=== PATIENT | male | born 1940 | race Caucasian/White ===

== ENCOUNTER 2016-09-11 07:55 | Emergency (ER) | payer MEDICARE ==
[~2016-09-11] VITALS: Ht 177.8 cm; Wt 73.0 kg
[2016-09-11 08:09] VITALS: BP 133/77; PULSE 71; RESP 16; TEMP 97.9; O2SAT 99
[2016-09-11] MEDS ORDERED: AMLO10TA2 PO (08:19)
[2016-09-11] MEDS ORDERED: ASPI1TAB69 PO (08:19)
--- NOTE | 2016-09-11 08:27 | PD ---
HPI Chief Complaint: Fall Time Seen by Provider: 08:10 Travel History International Travel<30 days: No Contact w/Intl Traveler<30days: No Traveled to known affect area: No History of Present Illness HPI This is a 75-year-old man who presents to the emergency department complaining of pain in the neck, pain in his back, pain in his hand from a fall. He states yesterday he was getting out of this before she walked into a sliding glass door sort of bounced off and fell backwards landing on his butt and on his hands. He did not hit his head on the ground. He states initially he was pretty sore especially in his neck and back and hands. He states today he feels significantly better. He still pain in his left hip, a little bit of stiffness in his neck. He otherwise looks well. History Past Medical History Narrative Medical BPH Hypertension Social History Tobacco Use: No Allergies-Medications (Allergen,Severity, Reaction): Coded Allergies: No Known Allergies (Unverified , 09/11/16) Reported Meds & Prescriptions Reported Meds & Active Scripts Active Reported Aspirin 81 Mg Tabdr 81 Mg PO DAILY Amlodipine (Amlodipine Besylate) 10 Mg Tab 10 Mg PO DAILY Review of Systems Except as stated in HPI: all other systems reviewed are Neg Physical Exam Narrative GENERAL: Well-appearing 75-year-old man, in no acute distress. SKIN: Focused skin assessment warm/dry. HEAD: Atraumatic. Normocephalic. EYES: Pupils equal and round. No scleral icterus. No injection or drainage. ENT: No nasal bleeding or discharge. Mucous membranes pink and moist. NECK: Trachea midline. No JVD. CARDIOVASCULAR: Regular rate and rhythm. No murmur appreciated. RESPIRATORY: No accessory muscle use. Clear to auscultation. Breath sounds equal bilaterally. GASTROINTESTINAL: Abdomen soft, non-tender, nondistended. Hepatic and splenic margins not palpable. MUSCULOSKELETAL: No obvious deformities. Back exam is normal. Full range of motion. No tenderness. Neck exam is normal. Full range of motion. Little bit of stiffness in the right side of the neck in the paraspinous muscles. No evidence of head injury. His right pinky is a little bit bruise over his full range of motion of that. He can flex and extend against resistance without limitation due to pain. NEUROLOGICAL: Awake and alert. No obvious cranial nerve deficits. Motor grossly within normal limits. Normal speech. PSYCHIATRIC: Appropriate mood and affect; insight and judgment normal. Data Data Last Documented VS Vital Signs Date Time Temp Pulse Resp B/P Pulse Ox O2 Delivery O2 Flow Rate FiO2 09/11/16 08:09 97.9 71 16 133/77 99 MDM Medical Decision Making Medical Screen Exam Complete: Yes Emergency Medical Condition: Yes Differential Diagnosis Contusion, head injury, fracture, other Narrative Course Medical decision making This 75-year-old man who fell backwards just after walking in a sliding glass door. He looks fantastic. He has some bruising on his right pinky. I don't see any evidence of broken bones otherwise. He has full range of motion. I don 't see evidence of significant neck injury, or back injury. This is a feels significantly improved. He walks without difficulty. Think he needs any imaging at this time. Encouraged supportive treatment. Diagnosis Primary Impression: Neck pain Additional Impression: Fall Additional Instructions: Use [id number] analgesics such as Aleve or acetaminophen as needed for pain. Follow-up with her primary doctor for not completely well the next 3-5 days. Return to the emergency department any worsening pain, numbness tingling or weakness, or any other new or worsening symptoms. Disposition: 01 DISCHARGE HOME Condition: Stable Trenton Mckeon MD Sep 11, 2016 08:27
== END 2016-09-11 08:40 | disposition home or self-care (01) ==
LOC: PHED 07:55
DX: M54.2 Cervicalgia (principal); S60.051A Contusion of right little finger without damage to nail, initial encounter; M54.9 Dorsalgia, unspecified; M25.552 Pain in left hip; I10 Essential (primary) hypertension; Z79.82 Long term (current) use of aspirin; Z87.438 Personal history of other diseases of male genital organs; W18.39XA Other fall on same level, initial encounter
CPT/HCPCS: 99282